=== PATIENT | female | born 1985 | race Caucasian/White ===

== ENCOUNTER 2018-11-09 16:30 | Emergency (ER) | payer MEDICAID ==
[~2018-11-09] VITALS: Ht 177.8 cm; Wt 86.4 kg
[2018-11-09 16:34] VITALS: Ht 177.8 cm; Wt 86.4 kg
[2018-11-09] MEDS ORDERED: NEURONTIN600 MG PO (16:36)
[2018-11-09] MEDS ORDERED: ZOLOFT50 MG PO (16:36)
[2018-11-09] MEDS ORDERED: AMBIEN10 MG PO (16:36)
[2018-11-09] MEDS ORDERED: LAMICTAL ODT50 MG PO (16:37)
[2018-11-09 17:30] LABS: BASOPHILS 0.7 % (0-2); EOSINOPHILS 0.3 % (0-7); HEMATOCRIT 29.6 % (36.0-48.0); HEMOGLOBIN 8.6 g/dL (12-16); IMMATURE GRANULOCYTES 0.1 % (0-5); MCHC 29.1 g/dL (31.0-37.0); NEUTROPHILS 61.9 % (40-80); PLATELET COUNT 206 10x3/uL (130-400); RBC 4.29 10x6/uL (4.00-5.40); WBC 6.8 10x3/uL (4.8-10.8)
[2018-11-09 17:53] LABS: ALBUMIN 3.3 g/dL (3.4-5.0); ALKALINE PHOSPHATASE 140 U/L (46-116); ALT (SGPT) 23 U/L (10-68); BILIRUBIN - TOTAL 0.34 mg/dL (0.2-1.3); CALC OSMOLALITY 281 mosm/kg (275-300); CALCIUM 8.2 mg/dL (8.5-10.1); CARBON DIOXIDE 24.9 mmol/L (21.0-32.0); CHLORIDE - SERUM 108 mmol/L (98-107); CREATININE - SERUM 0.6 mg/dL (0.6-1.3); GLUCOSE 91 mg/dL (74-106); POTASSIUM - SERUM 3.6 mmol/L (3.5-5.1); PROTEIN - SERUM 6.3 g/dL (6.4-8.2); SODIUM 143 mmol/L (136-145); UREA NITROGEN 5 mg/dL (7-18); eGFR NON AFRICAN AMERICAN > 90 mL/min (90-120)
[2018-11-09 18:00] LABS: HCG SERUM NEGATIVE (NEGATIVE)
[2018-11-09 18:17] LABS: APPEARANCE CLEAR (CLEAR); BILIRUBIN NEGATIVE (NEGATIVE); COLOR STRAW (YELLOW); GLUCOSE NEGATIVE (NEGATIVE); KETONE NEGATIVE (NEGATIVE); NITRITE NEGATIVE (NEGATIVE); PROTEIN NEGATIVE (NEGATIVE); SPECIFIC GRAVITY 1.005 (1.005-1.020); UROBILINOGEN NORMAL (NORMAL)
[2018-11-09 18:25] LABS: UDS - AMPHET NEGATIVE QUAL (NEGATIVE); UDS - BARB NEGATIVE QUAL (NEGATIVE); UDS - BENZO NEGATIVE QUAL (NEGATIVE); UDS - COCAINE NEGATIVE QUAL (NEGATIVE); UDS - OPIATE NEGATIVE QUAL (NEGATIVE); UDS - PCP NEGATIVE QUAL (NEGATIVE); UDS - THC NEGATIVE QUAL (NEGATIVE)
[2018-11-09 18:54] VITALS: BP 115/73
== END 2018-11-09 18:55 | disposition home or self-care (01) ==
LOC: EDBD 16:30 → D.ER 16:30
PROVIDERS: Family Medicine
DX: S01.21XA Laceration without foreign body of nose, initial encounter (principal); V49.9XXA Car occupant (driver) (passenger) injured in unspecified traffic accident, initial encounter; Y93.89 Activity, other specified; Y92.410 Unspecified street and highway as the place of occurrence of the external cause; S09.90XA Unspecified injury of head, initial encounter; S20.219A Contusion of unspecified front wall of thorax, initial encounter

== ENCOUNTER 2019-01-22 01:47 | Emergency (ER) | payer SELFPAY ==
[~2019-01-22] VITALS: Ht 177.8 cm; Wt 86.4 kg
[~2019-01-22 01:47] MED LIST: AMBIEN10 MG PO; LAMICTAL ODT50 MG PO; NEURONTIN600 MG PO; ZOLOFT50 MG PO
[2019-01-22 01:53] VITALS: Ht 177.8 cm; Wt 86.4 kg
[2019-01-22] MEDS ORDERED: SLOW RELEASE I160 MG PO (01:59)
[2019-01-22] MEDS ORDERED: LIBRIUM25 MG PO (03:31)
[2019-01-22 03:42] VITALS: BP 108/70
== END 2019-01-22 03:42 | disposition home or self-care (01) ==
LOC: D.ER 01:47
DX: F10.239 Alcohol dependence with withdrawal, unspecified (principal); F17.210 Nicotine dependence, cigarettes, uncomplicated